=== PATIENT | female | born 1960 | race Caucasian/White ===

== ENCOUNTER → 2018-10-29 08:57 | Outpatient (CLI) | payer BC ==
--- NOTE | 2018-11-03 16:39 | ST ---
PATIENT:OSMANY MCPHERSON MEDICAL RECORD: [id number] SEX: F LOCATION:[facility] ORDER #: ADMISSION DATE: 10/29/18 AGE OF PATIENT: 58 REFERRING PHYSICIAN: INTERPRETING PHYSICIAN: MIMI LAINEZ MD DATE OF SERVICE: 10/29/2018 PROCEDURE: Nuclear Stress Test. INDICATION: Angina, shortness of breath, hypertension. DESCRIPTION: She was stressed on standard Lexiscan protocol with 33 mCi of sestamibi injected at peak stress, 10 mCi were used previously for rest images. FINDINGS: Gated SPECT reveals an excellent ejection fraction at 85% with good wall motion thickening and brightness throughout the segments. SPECT IMAGING: Cardiolite was used for a myocardial perfusion agent. There is homogeneous uptake throughout all segments at rest and stress with no evidence of inducible ischemia or previous infarction. OVERALL IMPRESSION: This is a normal rest-stress Cardiolite with no evidence of inducible ischemia or previous infarction. A gated SPECT reveals preserved ejection fraction greater than 60%. At this time I would evaluate noncardiac etiology of chest pain. TRANSINT:[id number] Voice Confirmation ID: [id number] DOCUMENT ID: [id number] MIMI LAINEZ MD at 1639 CC: [id number] DICTATION DATE: 11/02/18 1606 SHIPFITTER HELPER: 11/03/18 0735 [facility] CLI 10/29/18 [id number] [place] [address]
== END | disposition home or self-care (01) ==
LOC: D.HCCARDIO 08:57
DX: I20.9 Angina pectoris, unspecified (principal)

== ENCOUNTER 2019-04-02 18:17 | Observation (INO) | payer MEDICARE ==
[2019-04-02] MEDS ORDERED: CYMBALTA30 MG PO (18:25)
[2019-04-02] MEDS ORDERED: LISINOPRIL20 MG PO (18:25)
[2019-04-02] MEDS ORDERED: CELEBREX 100 M100 MG PO (18:25)
[2019-04-02] MEDS ORDERED: ULTRAM50 MG PO (18:25)
[2019-04-02 18:38] LABS: BASOPHILS 0.2 % (0-2); EOSINOPHILS 1.8 % (0-7); HEMATOCRIT 39.3 % (36.0-48.0); HEMOGLOBIN 13.8 g/dL (12-16); IMMATURE GRANULOCYTES 0.3 % (0-5); LYMPHOCYTES 19.3 % (15-50); MCHC 35.1 g/dL (31.0-37.0); MCV 88.3 fL (80.0-100.0); MONOCYTES 6.2 % (2-11); NEUTROPHILS 72.2 % (40-80); PLATELET COUNT 260 10x3/uL (130-400); RBC 4.45 10x6/uL (4.00-5.40); WBC 13.2 10x3/uL (4.8-10.8)
[2019-04-02 18:51] VITALS: BP 153/87
[2019-04-02 18:53] LABS: APTT 25.9 SECONDS (22.8-39.4); INR 1.16 (0.85-1.17); PROTIME 14.3 SECONDS (11.6-15.0)
[2019-04-02 19:03] LABS: ALKALINE PHOSPHATASE 80 U/L (46-116); ALT (SGPT) 59 U/L (10-68); BILIRUBIN - TOTAL 1.01 mg/dL (0.2-1.3); CALC OSMOLALITY 287 mosm/kg (275-300); CALCIUM 9.4 mg/dL (8.5-10.1); CARBON DIOXIDE 30.2 mmol/L (21.0-32.0); CHLORIDE - SERUM 105 mmol/L (98-107); CREATININE - SERUM 0.8 mg/dL (0.6-1.3); GLUCOSE 116 mg/dL (74-106); POTASSIUM - SERUM 3.6 mmol/L (3.5-5.1); PROTEIN - SERUM 7.8 g/dL (6.4-8.2); SODIUM 144 mmol/L (136-145); UREA NITROGEN 12 mg/dL (7-18); eGFR NON AFRICAN AMERICAN 78 mL/min (90-120)
[2019-04-02 19:17] LABS: CKMB 0.8 U/L (0.0-3.6); CREATINE KINASE 78 UL (21-215); MAGNESIUM - SERUM 2.3 mg/dL (1.8-2.4)
[2019-04-02 19:23] LABS: TROPONIN-I < 0.017 ng/mL (0.000-0.060)
[2019-04-02 19:30] VITALS: BP 164/93
[2019-04-02 20:30] VITALS: BP 155/92
--- NOTE | 2019-04-02 21:40 | NUR ---
ADMIT TO ROOM 2115 FROM ER. ACCOMPANIED BY FAMILY. ALERT/ORIENTED. ADMISSION HISTORY AND ASSESSMENT COMPLETED. HOME MEDS REVIEWED. PLAN OF CARE INITIATED. PT TEACHING ON PURPOSE OF SERIAL TROPONIN BLOOD DRAWS FOR CARDIAC EVALUATION. MONITOR, CALL LIGHT IN REACH. TELEMETRY INITIATED. SR 85.
--- NOTE | 2019-04-02 23:13 | NUR ---
PHONE CALL TO DR LAINEZ AND RECIEVED ORDERS FOR SLEEP MED AND PAIN MEDS FOR TONIGHT.
[2019-04-03 00:03] LABS: CKMB 0.7 U/L (0.0-3.6); CREATINE KINASE 58 UL (21-215); TROPONIN-I < 0.017 ng/mL (0.000-0.060)
--- NOTE | 2019-04-03 00:06 | NUR ---
2320 PT C/O CHEST PAIN BEGINNING TO START BACK "JUST LIKE BEFORE". RATES IT 03/28. MEDICATED WITH MORPHINE 4MG SIVP. PT STATES SHE FELT FINE UNTIL SHE ATE HER [email or web address] FOOD. INSTRUCTED ON NOW BEING NPO UNTIL SEEN BY DOLL WIG MAKER IN AM AND WILL MONITOR HER RESPONSE TO MORPHINE GIVEN. PT ASKING FOR THE RESTORIL. INSTRUCTED THAT IT WILL BE PROVIDED AFTER THE MORPHINE HAS HAD TIME TO START WORKING.
[2019-04-03 00:52] VITALS: BP 133/76; BMI 32.3
--- NOTE | 2019-04-03 03:49 | NUR ---
AWAKE, OUT IN HALLWAY SAYING SHE NEEDS SOMETHING BECAUSE SHE CANNOT SLEEP. GAVE ORDERED RESTORIL AT THIS TIME. WORK ORDER PLACED FOR NONWORKING CALL LIGHT.
--- NOTE | 2019-04-03 04:42 | NUR ---
PT BACK AWAKE WITH C/O CHEST PAIN/PRESSURE 04/27. SR PER TELEMETRY. MEDICATED WITH MORPHINE 4MG SIVP. WILL MONITOR. FAMILY AT BEDSIDE.
[2019-04-03 05:38] VITALS: BP 118/61
[2019-04-03 05:47] LABS: CKMB 0.7 U/L (0.0-3.6); CREATINE KINASE 55 UL (21-215)
[2019-04-03 05:48] LABS: TROPONIN-I < 0.017 ng/mL (0.000-0.060)
[2019-04-03 08:31] VITALS: BP 105/67
--- NOTE | 2019-04-03 10:56 | NUR ---
IV AND TELEMETRY DCD. DC PLANS GIVEN. UNDERSTANDING VOICED. ESCORTED TO CAR BY W/C.
--- NOTE | 2019-04-04 08:19 | MORECARE ---
CASE MANAGEMENT DISCHARGE SUMMARY PATIENT: OSMANY MCPHERSON UNIT: [id number] ADM DATE: 04/02/19 AGE: 59 : 60 SEX: F ROOM/BED: D.5045 AUTHOR: CATALINO ISLAS PHYSICIAN: REFERRING PHYSICIAN: MIMI LAINEZ MD DATE OF SERVICE: 04/04/19 Discharge Plan Patient Name: OSMANY MCPHERSON Facility: [facility]:[place] : 1960 Planned Disposition: Home Anticipated Discharge Date: 04/03/19 Discharge Date: 04/03/2019 Expected LOS: 1 Initial Reviewer: [email or web address] Initial Review Date: 04/04/2019 Generated: 04/04/19 9:18 am Patient Name: OSMANY MCPHERSON Page [phone] at 0819 All edits/amendments must be made on the electronic document DICTATION DATE: 04/04/19817 REHABILITATION ATTENDANT: AMEE 04/04/19817 RPT#: [id number] DC DATE:04/03/19 STATUS: DIS IN [facility] [address] [place] [address] END OF REPORT
--- NOTE | 2019-04-06 11:19 | DS ---
PATIENT:OSMANY MCPHERSON :60 MEDICAL RECORD: [id number] DISCHARGE SUMMARY ADMISSION DATE: 04/02/19 DISCHARGE DATE: 04/03/19 DIAGNOSES: 1. Gastroesophageal reflux disease. 2. Chest pain. 3. Hypertension. HOSPITAL COURSE: Mrs. Mcpherson presents with chest pain and has most likely gastroesophageal reflux disease. Her cardiac workup is normal and she recently had a Lexiscan as well as echo, both of these were normal. At this time, she was asked to use GI directed therapy [id number]. Follow up with her primary care doctor if she has recurrences. TRANSINT:[id number] Voice Confirmation ID: [id number] DOCUMENT ID: [id number] MIMI LAINEZ MD at 1119 CC: [id number] DICTATION DATE: 04/03/19 1200 FLATTENING MACHINE OPERATOR: 04/03/193 DIS IN 04/03/19 [id number] [place] [address]
--- NOTE | 2019-04-06 11:19 | HP ---
PATIENT: OSMANY MCPHERSON MEDICAL RECORD: [id number] ACCOUNT: [id number] LOCATION:[address]. [address] : 60 ADMISSION DATE: 04/02/19 PCP: ARIANNA COLLIER MD HISTORY AND PHYSICAL EXAMINATION ADMITTING DIAGNOSES: 1. Chest pain. 2. Hypertension. HISTORY OF PRESENT ILLNESS: Ms. Mcpherson presents with chest pain, many atypical components of her chest pain that started in her right shoulder and moved to the center of her chest, then moved to her left arm, then moved to her back. It was associated with diaphoresis. It was associated with nausea. The pain became quite severe. She presented to the Emergency Room. She has not had any chest pain since. Her troponins are normal. Her EKG is normal. She had a cardiac workup in October as she had a similar episode. Lexiscan was normal. Echo was normal. She does have a history of GERD, she is currently not on any medications. She is on Celebrex and Ultram as well as Cymbalta. PHYSICAL EXAMINATION: GENERAL APPEARANCE: Well-nourished, well-developed, appears stated age. Level of distress, comfortable. PSYCHIATRIC: Mental status, alert, normal affect. Orientation, oriented to time, place and person. EYES: Lids and conjunctiva, noninjected. No discharge, no pallor. ENT: Lips, teeth, gums, normal dentition. Oropharynx, no cyanosis, no pallor. NECK: Carotid arteries, bilateral normal upstroke, no bruits, no thrills. JUGULAR VEINS: No jugular venous pressure or distention. CERVICAL LYMPH NODES: Nontender, nonenlarged. THYROID: Not enlarged. Nontender. No nodules. LUNGS: Respiratory effort, unlabored. CHEST: Normal curvature. No thoracic deformity. No chest wall tenderness. Percussion, resonant. Auscultation, clear. No wheezes, no rales, no rhonchi. CARDIOVASCULAR: Precordial exam, nondisplaced. No heaves or pericardial thrills. Rate and rhythm, regular. Heart sounds, normal S1, normal S2. No S3, no gallop, no rub. Systolic murmur, not heard. Diastolic murmur, not heard. EXTREMITIES: No cyanosis, no edema. Peripheral pulses, full and equal in all extremities, except as noted. No bruits appreciated. ABDOMEN: Soft, nondistended. Normal aorta. No bruit. Nontender. No masses. Liver, nontender, no hepatomegaly. Spleen, nontender, no splenomegaly. MUSCULOSKELETAL: No joint tenderness. No joint swelling. No erythema. NEUROLOGICAL: Normal gait, normal strength, normal tone. SKIN: Warm and dry. OVERALL IMPRESSION: Chest pain. At this point, most likely this is acid reflux related exacerbated by Celebrex and Ultram. Not on any GI-directed medications. Would suggest GI-directed medications for her at this time. With a normal EKG, normal troponin, and a normal cardiac workup just a few months ago, no other cardiac workup or treatment is necessary at this time. TRANSINT:[id number] Voice Confirmation ID: [id number] DOCUMENT ID: [id number] HISTORY AND PHYSICAL [id number] OSMANY MCPHERSON, MIMI VELEZ at 1119 CC: [id number] DICTATION DATE: 04/03/19 1200 GASOLINE ENGINE INSPECTOR: 04/03/19 1332 DIS IN 04/03/19 [facility] [address] [place] [address]
== END 2019-04-03 10:58 | disposition home or self-care (01) ==
LOC: D.ER 18:17 → D.M2 20:06 → OBSVTIME 20:06 → D.M2 04-03 10:58
PROVIDERS: Emergency Medicine; ADMIT Internal Medicine Interventional Cardiology; ATTEND Internal Medicine Interventional Cardiology
DX: R07.9 Chest pain, unspecified (principal); K21.9 Gastro-esophageal reflux disease without esophagitis; I10 Essential (primary) hypertension

== ENCOUNTER 2021-04-20 13:16 | Emergency (ER) | payer OTHER ==
[~2021-04-20] VITALS: Ht 167.6 cm; Wt 88.6 kg
[~2021-04-20 13:16] MED LIST: CELEBREX 100 M100 MG PO; CYMBALTA30 MG PO; LISINOPRIL20 MG PO; ULTRAM50 MG PO
[2021-04-20 13:20] VITALS: Ht 167.6 cm; Wt 88.6 kg
[2021-04-20 14:05] LABS: BASOPHILS 0.3 % (0-2); HEMATOCRIT 39.8 % (36.0-48.0); HEMOGLOBIN 13.5 g/dL (12-16); LYMPHOCYTES 28.4 % (15-50); MCH 30.1 pg (26.0-34.0); MCHC 33.9 g/dL (31.0-37.0); MCV 88.6 fL (80.0-100.0); MEAN PLATELET VOLUME 8.5 fL (7.4-10.4); MONOCYTES 7.2 % (2-11); NEUTROPHILS 62.1 % (40-80); PLATELET COUNT 311 10x3/uL (130-400); RBC 4.49 10x6/uL (4.00-5.40); RDW 13.7 % (11.5-14.5); WBC 13.4 10x3/uL (4.8-10.8)
[2021-04-20 14:12] LABS: CALC OSMOLALITY 282 mosm/kg (275-300); CALCIUM 8.9 mg/dL (8.5-10.1); CARBON DIOXIDE 26.7 mmol/L (21.0-32.0); CHLORIDE - SERUM 101 mmol/L (98-107); CREATININE - SERUM 1.2 mg/dL (0.6-1.3); GLUCOSE 112 mg/dL (74-106); POTASSIUM - SERUM 3.4 mmol/L (3.5-5.1); SODIUM 137 mmol/L (136-145); UREA NITROGEN 35 mg/dL (7-18); eGFR NON AFRICAN AMERICAN 48 mL/min (90-120)
[2021-04-20 14:26] LABS: ALBUMIN 4.3 g/dL (3.4-5.0); ALKALINE PHOSPHATASE 76 U/L (30-120); ALT (SGPT) 26 U/L (10-68); BILIRUBIN - TOTAL 0.47 mg/dL (0.2-1.3); CREATINE KINASE 114 UL (21-215); MAGNESIUM - SERUM 2.5 mg/dL (1.8-2.4); PROTEIN - SERUM 7.5 g/dL (6.4-8.2)
[2021-04-20 14:27] LABS: TROPONIN-I < 0.017 ng/mL (0.000-0.060)
[2021-04-20 16:58] VITALS: BP 121/69
== END 2021-04-20 16:59 | disposition home or self-care (01) ==
LOC: D.ER 13:16
PROVIDERS: Family Medicine
DX: R61 Generalized hyperhidrosis (principal); R10.9 Unspecified abdominal pain; D72.829 Elevated white blood cell count, unspecified; R55 Syncope and collapse; I10 Essential (primary) hypertension